=== PATIENT | male | born 1975 | race Caucasian/White ===

== ENCOUNTER 2017-05-02 17:36 | Emergency (ER) | payer OTHER ==
[~2017-05-02] VITALS: Ht 200.7 cm; Wt 115.9 kg
[~2017-05-02 17:36] MED LIST: ADV250INH IH; ALBU8.5H2 IH; AMLO10TA3 PO; ATOR20TA65 PO; BUPR150T12 PO; CLON0.1T PO; HYDR25TA4 PO; LEVO25TA5 PO; PANT40TA3 PO; TIOT18CA3 IH; [UNRECOGNIZED DRUG - CODE] IV
[2017-05-02 17:38] VITALS: BP 162/82; PULSE 108; RESP 17; O2SAT 98
--- NOTE | 2017-05-02 17:38 | ED.REPORT ---
HPI-General Illness Date of Service May 02, 2017 ED Provider: Justin Stanford DO A 41 year old male with a history of COPD, alcohol abuse and hemophilia B presents to the ED due to bleeding. The pt has been experiencing a productive cough recently, and noticed an area of bruising on his left lower abdomen yesterday. He also noticed a mass under this area, which he has not experienced before. The pt states that the affected area feels like it is continuing to enlarge. He called his supervisor grips at today, who referred him to the ED to get a factor IX treatment. The pt admits to headache and weakness, but denies nausea. He has experienced similar symptoms before. The pt takes six ibuprofen per day and quit smoking two weeks ago. Nursing Notes Stated Complaint: FACTOR 9/BLEEDING Nursing Notes Reviewed: Yes Allergies: Coded Allergies: No Known Allergies (Unverified , 05/03/17) Scheduled Amlodipine (Amlodipine) 10 Mg Tablet 10 MG PO DAILY Atorvastatin Calcium (Atorvastatin Calcium) 20 Mg Tablet 20 MG PO DAILY Azithromycin (Zithromax) 250 Mg Tablet 250 MG PO DAILY Bupropion ER (Bupropion ER) 150 Mg Tablet.er 150 MG PO BID Fluticasone/Salmeterol (Advair 250-50 Diskus) 60 Puff/Inh Disk 1 PUFF IH BID Hydrochlorothiazide (Hydrochlorothiazide) 25 Mg Tablet 25 MG PO DAILY Levothyroxine (Levothyroxine) 25 Mcg Tablet 25 MCG PO DAILY Pantoprazole DR (Pantoprazole DR) 40 Mg Tablet.dr 40 MG PO DAILY Prednisone (PredniSONE) 20 Mg Tablet 40 MG PO DAILY Tiotropium [place] (Spiriva) 18 Mcg Cap.w.dev 18 MCG IH DAILY Scheduled PRN ([vicodan]) unknown PO q4 to 6hrs PRN PRN For Pain Albuterol HFA (Proair HFA) 8.5 Gm Hfa.aer.ad 2 PUFFS IH Q4 PRN PRN For Shortness of Breath General Time Seen by MD: 17:37 Chief Complaint Other (Bleeding) Hx Obtained From: Patient Arrived By: Walk-in Sudden in Onset?: No Onset Occurred: 1 day ago Symptom Duration: Since onset Recent Healthcare: No recent hospitalization, Recent doctor visit Similar Sx Previous: Yes Past Medical History Past Medical History Hemophilia B Ruptured abd muscle COPD frequent ibuprofen use Past Surgical History Ankle surgery Reports: Knee replacement Smoking History Former Smoker (quit 04/2017) Social History Alcohol Use: 3-5 per day Drug Use: THC Ambulatory Status Independent Review of Systems mass in abdomen Full Review of Systems Constitutional: Reports: Weakness - generalized Cardiovascular: Denies: Chest pain GI: Reports: Nausea, Denies: Abdominal pain, Vomiting Musculoskeletal: Denies: Back pain, Neck pain Skin: Reports Bruising Neurologic: Reports: Headache Complete sys rev & neg: except as marked. Physical Exam Vital Signs Vital Signs Date Time Temp Pulse Resp B/P Pulse Ox O2 Delivery O2 Flow Rate FiO2 05/02/17 20:51 102 11 142/87 97 Room Air 05/02/17 17:38 36.6 108 17 162/82 98 Room Air Initial VS: Reviewed General/Constitutional: Awake, Alert Head / Eyes: Atraumatic, Normocephalic, PERRL, EOMI ENT: Atraumatic, Airway patent, Mucous membranes moist Neck: Atraumatic, Supple, Full range of motion Respiratory / Chest: Atraumatic, Breath sounds = bilat, No respiratory distress scattered expiratory wheezing Cardiovascular: Heart rate NL, Regular rhythm, Heart sounds NL Abdomen: Soft, Non-tender 12 cm mass in the LLQ with overlying hematoma, tender to palpation Back: Atraumatic, Full range of motion Upper Extremities Upper Extremity / MS: Atraumatic, Full range of motion Lower Extremity / Pelvis / MS: Atraumatic, Full range of motion Skin: Warm, Dry Neurologic: Oriented X3, Speech NL, No motor deficits, No sensory deficits Psychiatric: Affect NL, Mood NL Interpretation & Diagnostics Lab Results Interpretation Result Diagram: 05/02/17 1750 05/02/17 1750 Test 05/02/17 17:50 05/02/17 18:24 White Blood Count 10.3th/mm3 (3.8-10.1) Red Blood Count 4.45mil/mm3 (4.40-5.80) Hemoglobin 14.9g/dL (13.8-17.2) Hematocrit 40.4% (41.0-50.0) Mean Corpuscular Volume 90.8fL (81-100) Mean Corpuscular Hemoglobin 33.5pg (27.0-35.0) Mean Corpuscular Hemoglobin Concent 36.9% (32.0-37.0) Red Cell Distribution Width 12.4% (12.3-15.4) Platelet Count 246bil/L (150-400) Neutrophils (%) (Auto) 76.5% (40-74) Lymphocytes (%) (Auto) 14.3% (14-46) Monocytes (%) (Auto) 7.9% (4-12) Eosinophils (%) (Auto) 0.7% (0-5) Basophils (%) (Auto) 0.2% (0-3) Prothrombin Time 10.0sec (8.1-12.5) Prothromb Time International Ratio 0.94ratio Sodium Level 140mEq/L (134-144) Potassium Level 3.0mEq/L (3.5-5.2) Chloride Level 100mEq/L (97-108) Carbon Dioxide Level 21mmol/L (18-29) Blood Urea Nitrogen 10mg/dL (6-24) Creatinine 0.84mg/dL (0.76-1.27) Estimat Glomerular Filtration Rate 107mL/min (>59) Glucose Level 108mg/dL (60-99) Calcium Level 8.2mg/dL (8.5-10.1) Magnesium Level 0.8mg/dL (1.6-2.6) Total Bilirubin 0.9mg/dL (0.0-1.2) Aspartate Amino Transf (AST/SGOT) 16U/L (0-50) Alanine Aminotransferase (ALT/SGPT) 13U/L (0-44) Alkaline Phosphatase 99U/L (25-150) Total Protein 7.2g/dL (6.4-8.4) Albumin 4.3g/dL (3.4-5.0) Lipase 17U/L (13-60) Hold Feliz Top Tube Received (Received) X-Ray Chest Interpretation Chest Xray Interpretation: IMPRESSION: No acute disease Dictated by: Keyon Strong M.D. on 05/02/2017 at 18:38 Approved by: Keyon Strong M.D. on 05/02/2017 at 18:39 Interpretation / Wet Read by: Interpret - Radiologist CT Abd / Pelvis Interpretation IMPRESSION: Large left rectus abdominis intramuscular hematoma. Recommend clinical correlation and followup to document resolution and exclude underlying soft tissue mass. Dictated by: Keyon Strong M.D. on 05/02/2017 at 19:20 Approved by: Keyon Strong M.D. on 05/02/2017 at 19:27 Interpretation / Wet Read by: Interpret - Radiologist Re-Eval/Medical Decision Med Decision/Clinical Course Pt treated with factor IX sent from hematology for rectus sheath hematoma as recommended by his supervisor grips. He will return tomorrow for additional dose which was also sent as he routinely does. I am electing to treat him for COPD exacerbation given his h/o of this, his SOB/wheezing, and his increase sputum production/color change, in order to reduce his coughing and prevent a recurrence of his condition. Pt agreeable with this plan Source of Hx: Old records Time of Eval: 20:21 Patient Status: Condition improved Re-Evaluation/Progress Note: Pt rechecked, who is resting comfortably. The diagnosis and plan for discharge are discussed. The pt understands and agrees with the plan. All questions are addressed at this time. 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 Return tomorrow for your second dose of factor IX. Call your supervisor grips and primary care physician to arrange a follow up appointment for further evaluation. Take hydrocodone as needed for pain. Take prednisone and azithromycin as directed for your COPD. This should help your cough that led to a hematoma. Return to the emergency department if you develop any new or worsening symptoms including worsening bleeding, abdominal pain, nausea, vomiting or fever. Referrals: Lance Sr DO (PCP) Scribe Attestation Portions of this note were transcribed by Elmira Felipe. I, Dr. Stanford personally performed the history, physical exam and medical decision-making; I reviewed and confirmed the accuracy of the information in the transcribed note. copies to: Lance Sr Gary R DO May 02, 2017 17:38 ELMIRA FELIPE May 02, 2017 17:48
[2017-05-02] MEDS ORDERED: predniSONE 20 mg Tablet PO ONE (17:50)
[2017-05-02] MEDS ORDERED: HYDROmorphone 0.5 mg/0.5 mL iSecure Syringe IVPUSH PRN (17:50)
[2017-05-02] MEDS ORDERED: Ondansetron 2 mg/mL 2 mL Inj IVPUSH PRN (17:50)
[2017-05-02 18:13] LABS: BASOPHILS % (AUTO) 0.2 % (0-3); EOSINOPHILS % (AUTO) 0.7 % (0-5); MONOCYTES % (AUTO) 7.9 % (4-12); Mean Corpuscular Hemoglobin 33.5 pg (27.0-35.0); Mean Corpuscular Volume 90.8 fL (81-100); NEUTROPHILS % (AUTO) 76.5 % (40-74); Platelet Count 246 bil/L (150-400)
[2017-05-02 18:23] LABS: INR 0.94 ratio
[2017-05-02] MEDS ORDERED: [UNRECOGNIZED DRUG - MIXTURE] IV ONE (18:30)
--- NOTE | 2017-05-02 18:40 | DRSVH ---
PROCEDURE: X-RAY CHEST, TWO VIEWS ([id number]) INDICATIONS: cough TECHNIQUE: 2 views of the chest were acquired. COMPARISON: None. FINDINGS: Surgical changes and devices: None. Lungs and pleura: No pleural effusions or pneumothorax. Lungs are clear. Mediastinum: Mediastinal contours are normal. Heart size is normal. Bones and chest wall: No suspicious bony abnormalities. Soft tissues appear unremarkable. IMPRESSION: No acute disease Dictated by: Keyon Strong M.D. on 05/02/2017 at 18:38 Approved by: Keyon Strong M.D. on 05/02/2017 at 18:39
[2017-05-02 18:48] LABS: Magnesium 0.8 mg/dL (1.6-2.6)
[2017-05-02] MEDS ORDERED: Magnesium Sulf 2 Gm/50mL Water 2 GM in IV Premix 1 EACH IV ONE (18:50)
--- NOTE | 2017-05-02 19:29 | DRSVH ---
PROCEDURE: CT ABDOMEN AND PELVIS WITH CONTRAST ([id number]) INDICATIONS: LLQ abdom mass, h/o hemophelia TECHNIQUE: After the administration of intravenous contrast, 5 mm thick sections acquired from the diaphragm to the symphysis. 5 mm coronal and sagittal reformats were acquired. For radiation dose reduction, the following was used: automated exposure control, adjustment of mA and/or kV according to patient nalini garcia COMPARISON: [facility], CT, CT ABD PELVIS W CON, 09/30/2016, 19:01. FINDINGS: Image quality: Excellent. ABDOMEN: Lung bases: No acute consolidation. There is a 3 mm nodule seen in the right lung base on image 18 se arnav 4 which is unchanged since 09/30/16. There is mild bronchiectasis and scarring in the medial gissel g bases. There is aortic thickening. Solid organs: Liver and spleen are normal in size and enhancement. Gallbladder negative. Biliary s ystem is non dilated. Pancreas enhances normally. No adrenal nodules. Kidneys demonstrate normal s ize without hydronephrosis. There is probable minimal contrast material within the renal collecting s ystems (rather than nephrolithiasis) Peritoneum and bowel: Bowel loops demonstrate normal wall thickness and caliber. No free fluid or a ir. Normal appendix. The rectum is decompressed and unremarkable. Nodes and vessels: No retroperitoneal or mesenteric adenopathy by size criteria. Aorta and inferior vena cava are normal in size. Miscellaneous: There is marked enlargement of the left abdominis rectus muscle with overlying subcuta neous stranding. There is increased attenuation and findings likely represent intramuscular hematoma which measures approximately 5.1 x 9.9 cm in cross-sectional dimensions PELVIS: Genitourinary: Bladder wall thickness is normal. Miscellaneous: No inguinal hernias or adenopathy. Bones: No suspicious bony lesions. No vertebral body compression fractures. IMPRESSION: Large left rectus abdominis intramuscular hematoma. Recommend clinical correlation and followup to do cument resolution and exclude underlying soft tissue mass. Dictated by: Keyon Strong M.D. on 05/02/2017 at 19:20 Approved by: Keyon Strong M.D. on 05/02/2017 at 19:27
[2017-05-02] MEDS ORDERED: Potassium Chloride 20 mEq SR Tablet PO ONE (19:45)
[2017-05-02] MEDS ORDERED: ZIT250 PO (20:39)
[2017-05-02] MEDS ORDERED: PRE20 PO (20:39)
[2017-05-02] MEDS ORDERED: _HYDROcodone/APAP 5-325 mg Tablet PO PRN (20:40)
[2017-05-02 20:51] VITALS: BP 142/87; PULSE 102; RESP 11; O2SAT 97
[2017-05-03] MEDS ORDERED: VICODAN PO (21:13)
[2017-05-06] MEDS ORDERED: VARE1TAB22 PO (09:17)
== END 2017-05-02 20:56 | disposition home or self-care (01) ==
LOC: SED 17:36
DX: S30.1XXA Contusion of abdominal wall, initial encounter (principal); X58.XXXA Exposure to other specified factors, initial encounter; Y93.89 Activity, other specified; Y92.89 Other specified places as the place of occurrence of the external cause; Y99.8 Other external cause status; J44.1 Chronic obstructive pulmonary disease with (acute) exacerbation; D67 Hereditary factor IX deficiency; E83.42 Hypomagnesemia; E87.6 Hypokalemia; R53.1 Weakness; R51 Headache; Z98.890 Other specified postprocedural states; Z96.659 Presence of unspecified artificial knee joint; Z87.891 Personal history of nicotine dependence
CPT/HCPCS: 36415; 71020; 74177; 80053; 83690; 83735; 85025; 85610; 96374; 96375; 99285; J7194; Q9967

== ENCOUNTER 2017-05-03 17:16 | Inpatient (IN) | payer OTHER ==
[~2017-05-03] VITALS: Ht 200.7 cm; Wt 118.3 kg
[~2017-05-03 17:16] MED LIST changes: +PRE20 PO; +ZIT250 PO
[2017-05-03 17:26] VITALS: BP 149/85; PULSE 112; RESP 16; O2SAT 96
--- NOTE | 2017-05-03 17:43 | ED.REPORT ---
HPI-General Illness Date of Service May 03, 2017 ED Provider: Dr. Aguilar Pt is a 41 y/o male w/ a hx of hemophilia B, COPD, presenting to the ED c/o abdominal bruising and swelling onset 2 days ago. The patient states this is a rectus sheath hematoma and he experiences this about every 6 months in the same location. It occurred this time because he coughed. He was seen in the ED yesterday and diagnosed with rectus sheath hematoma after an abd/pelvis CT was performed. He was told to return today for his second round of factor IX. The patient's CLINICAL DOCUMENTATION SPEC groundman/lineman called prior to arrival today and recommended he be admitted for 2 days and given factor IX. He denies nausea, vomiting, fever, chills, lightheadedness, weakness, fatigue, SOB. Nursing Notes Stated Complaint: BLEEDING Chief Complaint: General Complaint Nursing Notes Reviewed: Yes Allergies: Coded Allergies: No Known Allergies (Unverified , 05/03/17) Scheduled Amlodipine (Amlodipine) 10 Mg Tablet 10 MG PO DAILY Atorvastatin Calcium (Atorvastatin Calcium) 20 Mg Tablet 20 MG PO DAILY Azithromycin (Zithromax) 250 Mg Tablet 250 MG PO DAILY Bupropion ER (Bupropion ER) 150 Mg Tablet.er 150 MG PO BID Fluticasone/Salmeterol (Advair 250-50 Diskus) 60 Puff/Inh Disk 1 PUFF IH BID Hydrochlorothiazide (Hydrochlorothiazide) 25 Mg Tablet 25 MG PO DAILY Levothyroxine (Levothyroxine) 25 Mcg Tablet 25 MCG PO DAILY Pantoprazole DR (Pantoprazole DR) 40 Mg Tablet.dr 40 MG PO DAILY Prednisone (PredniSONE) 20 Mg Tablet 40 MG PO DAILY Tiotropium [place] (Spiriva) 18 Mcg Cap.w.dev 18 MCG IH DAILY Scheduled PRN ([vicodan]) unknown PO q4 to 6hrs PRN PRN For Pain Albuterol HFA (Proair HFA) 8.5 Gm Hfa.aer.ad 2 PUFFS IH Q4 PRN PRN For Shortness of Breath General Time Seen by MD: 17:43 Chief Complaint Other (abd hematoma) Hx Obtained From: Patient Arrived By: Walk-in Sudden in Onset?: Yes Onset Occurred: 2 days ago Symptom Duration: Since onset Severity: Current: No pain currently Severity: Maximum: No pain Recent Healthcare: Recent doctor visit, Recent testing, Previous diagnosis, Prior workup Similar Sx Previous: Yes Past Medical History Past Medical History Hemophilia B diagnosed at age 17 Recurrent rectus sheath hematoma Ruptured abd muscle COPD frequent ibuprofen use H/o hyperlipidemia Hx pneumonia Anxiety Past Surgical History Ankle surgery Reports: Knee replacement Family History Hemophilia B Smoking History Former Smoker Social History Alcohol Use: 3-5 per day Drug Use: THC Ambulatory Status Independent Review of Systems Full Review of Systems Constitutional: Denies: Chills, Fatigue, Fever Respiratory: Reports: Non-productive cough, Denies: Shortness of breath Cardiovascular: Denies: Chest pain GI: Denies: Nausea, Vomiting Hematologic: Reports Bruising Neurologic: Denies: Dizziness, Lightheaded Complete sys rev & neg: except as marked. Physical Exam Vital Signs Vital Signs Date Time Temp Pulse Resp B/P Pulse Ox O2 Delivery O2 Flow Rate FiO2 05/03/17 17:26 36.9 112 16 149/85 96 Room Air Initial VS: Reviewed, Vital signs abnormal Head / Eyes: Atraumatic, Normocephalic, PERRL ENT: Mucous membranes moist, Conjunctiva normal, No scleral icterus Neck: Supple, Full range of motion Respiratory: Breath sounds normal, Clear to auscultation, No respiratory distress Cardiovascular: Regular rate & rhythm, Heart sounds normal, Intact distal pulses Extremities: Vascular intact, Neuro intact, No swelling Skin: Warm, Dry, No cyanosis Neurologic: Alert, Oriented, Nonfocal Psychiatric: Mood/affect normal, Behavior normal, Normal thought content General/Constitutional: Awake, Alert, No acute distress, Well appearing, Cooperative, Not toxic appearing Abdomen: Soft, Non-tender, No guarding, No rebound 10x12 cm hematoma over LLQ with some overlying contusion Interpretation & Diagnostics Lab Results Interpretation Result Diagram: 05/03/17 1840 05/03/17 184 Test 05/03/17 18:40 White Blood Count 10.1th/mm3 (3.8-10.1) Red Blood Count 4.19mil/mm3 (4.40-5.80) Hemoglobin 14.0g/dL (13.8-17.2) Hematocrit 38.6% (41.0-50.0) Mean Corpuscular Volume 92.1fL (81-100) Mean Corpuscular Hemoglobin 33.4pg (27.0-35.0) Mean Corpuscular Hemoglobin Concent 36.3% (32.0-37.0) Red Cell Distribution Width 12.5% (12.3-15.4) Platelet Count 258bil/L (150-400) Neutrophils (%) (Auto) 75.0% (40-74) Lymphocytes (%) (Auto) 15.8% (14-46) Monocytes (%) (Auto) 7.5% (4-12) Eosinophils (%) (Auto) 0.7% (0-5) Basophils (%) (Auto) 0.2% (0-3) Prothrombin Time 9.9sec (8.1-12.5) Prothromb Time International Ratio 0.93ratio Sodium Level 137mEq/L (134-144) Potassium Level 2.8mEq/L (3.5-5.2) Chloride Level 97mEq/L (97-108) Carbon Dioxide Level 22mmol/L (18-29) Blood Urea Nitrogen 12mg/dL (6-24) Creatinine 0.87mg/dL (0.76-1.27) Estimat Glomerular Filtration Rate 103mL/min (>59) Glucose Level 105mg/dL (60-99) Calcium Level 8.6mg/dL (8.5-10.1) Total Bilirubin 0.7mg/dL (0.0-1.2) Aspartate Amino Transf (AST/SGOT) 12U/L (0-50) Alanine Aminotransferase (ALT/SGPT) 11U/L (0-44) Alkaline Phosphatase 89U/L (25-150) Total Protein 7.7g/dL (6.4-8.4) Albumin 4.4g/dL (3.4-5.0) Thyroid Stimulating Hormone (TSH) 7.680uIU/mL (0.450-4.500) ECG Interpretation ECG Interpretation: Sinus tachycardia rate 102 Time: 19:42 Interpreted by: ED physician Normal ECG Interpretation: Normal sinus rhythm, No acute ischemic changes, Normal QRS, Normal axis, Normal intervals, Adequate tracing Re-Eval/Medical Decision Med Decision/Clinical Course 41-year-old male history of hemophilia B sent in by nurse practitioner at hemophilia clinic for rectus sheath hematoma for admission for factor IX. Patient was spontaneous rectus sheath hematoma 2 days ago. Seen yesterday at CT scan was performed which showed the rectus sheath hematoma. Patient was given factor IX yesterday. The day he called hemophilia clinic and noted worsening swelling was told to come in for factor IX and admission. I discussed at length with the nurse practitioner from the hemophilia clinic who recommended Factor IX bolus dose in ER followed by 5800 IUs Q12hrs to be initiated 12 hours after bolus dose. His hemoglobin is stable. His vital signs are stable. Admitted to the hospital. Time of Eval: 18:48 Re-Evaluation/Progress Note: Pt rechecked. Informed pt of need for admission. Pt understands and agrees with plan for admission. All questions addressed. Consultation #1: Referral / Consult Name: Mariusz Avendano MD Consulted With: Hospitalist Call Returned at: 19:28 Admissions Assistant: Will see patient, Agrees with eval, Agrees with plan, Accepts admit Consultation #2: Consulted With: Press Shop Supervisor Call Returned at: 17:30 Admissions Assistant: Agrees with eval, Agrees with plan Note: Case discussed w/ patient's CLINICAL DOCUMENTATION SPEC groundman/lineman. Counseled Regarding: Diagnosis, Lab results, Need for admission Discharge & Departure Primary Impression: Rectus sheath hematoma Encounter type: initial encounter Qualified Code: S30.1XXA - Contusion of abdominal wall, initial encounter Additional Impressions: Hemophilia B Factor IX deficiency Hypokalemia Disposition: ADMITTED TO HOSPITAL Discharge Condition All VS Reviewed: Yes Condition: Stable Referrals: Lance Sr DO (PCP) Scribe Attestation Portions of this note were transcribed by Ferny Pineda. I, Dr. Aguilar personally performed the history, physical exam and medical decision-making; I reviewed and confirmed the accuracy of the information in the transcribed note. copies to: Lance Sr Ben M MD May 03, 2017 17:43 FERNY PINEDA May 03, 2017 18:46
[2017-05-03] MEDS ORDERED: [UNRECOGNIZED DRUG - MIXTURE] IV ONE (18:00)
[2017-05-03 18:47] LABS: BASOPHILS % (AUTO) 0.2 % (0-3); EOSINOPHILS % (AUTO) 0.7 % (0-5); MONOCYTES % (AUTO) 7.5 % (4-12); Mean Corpuscular Hemoglobin 33.4 pg (27.0-35.0); Mean Corpuscular Volume 92.1 fL (81-100); Platelet Count 258 bil/L (150-400)
[2017-05-03 19:04] LABS: INR 0.93 ratio
[2017-05-03] MEDS ORDERED: KCl 40 mEq/D5W 500 mL 40 MEQ in IV Premix 1 EACH IV ONE (19:25)
[2017-05-03] MEDS ORDERED: Alum-Mag Hydrox-Simeth 30 mL Suspension PO PRN ×2 (19:35→20:15)
[2017-05-03] MEDS ORDERED: Ondansetron 2 mg/mL 2 mL Inj IVPUSH PRN ×2 (19:35→20:15)
--- NOTE | 2017-05-03 19:47 | PCM.HPMED ---
Subjective Date of Service May 03, 2017 Primary Provider: Admitting Physician: Primary Care Physician: Lance Sr DO Attending Physician: Chief Complaint: Abdominal bruising History of Present Illness: 41-year-old male with a history of hemophilia, COPD and recurrent rectal sheath hematomas presents to emergency department due to new onset abdominal bruising and swelling that started 2 days ago. The patient presented yesterday to the ED and was found to be in stable condition and scheduled to return today for factor IX replacement. Patient states that his bruising continued to increase and he presented again to see department. He states that this occurs every 6 months around the same location in the lower abdomen. He believes it started this time due to coughing fit which he had. He contact his mounted police in [place] (whose name he does not know) and the nurse practitioner told him that he should come to the hospital and be admitted for 2 days for replacement of factor IX. He denies any associated symptoms of blood loss including dizziness , lightheadedness, chest pain, shortness of breath, weakness, or fatigue. Emergency department the patient has received 11,000 international units of factor IX. Yesterday he had a CT abdomen which showed a hematoma, and the study was not repeated today. Review of Systems: Complete review of systems performed; pertinent positives and negatives per history of present illness, all other systems reviewed and are negative Allergies Coded Allergies: No Known Allergies (Unverified , 05/03/17) Home Medications Amlodipine (Amlodipine) 10 Mg Tablet 10 MG PO DAILY Atorvastatin Calcium (Atorvastatin Calcium) 20 Mg Tablet 20 MG PO DAILY Azithromycin (Zithromax) 250 Mg Tablet 250 MG PO DAILY Bupropion ER (Bupropion ER) 150 Mg Tablet.er 150 MG PO BID Factor IX Human Recombinant (Benefix) 3,000 Unit Kit 5,750 UNITS IV DAILY Fluticasone/Salmeterol (Advair 250-50 Diskus) 60 Puff/Inh Disk 1 PUFF IH BID Hydrochlorothiazide (Hydrochlorothiazide) 25 Mg Tablet 25 MG PO DAILY Levothyroxine (Levothyroxine) 25 Mcg Tablet 25 MCG PO DAILY Pantoprazole (Pantoprazole DR) 40 Mg Tablet.dr 40 MG PO DAILY Prednisone (PredniSONE) 20 Mg Tablet 40 MG PO DAILY Tiotropium [place] (Spiriva) 18 Mcg Cap.w.dev 18 MCG IH DAILY Albuterol HFA (Proair HFA) 8.5 Gm Hfa.aer.ad 2 PUFFS IH Q4 PRN PRN For Shortness of Breath Clonidine (Clonidine) 0.1 Mg Tablet 0.1 MG PO BID PRN PRN "SWEATING" PMH Hemophilia B diagnosed at age 17 Recurrent rectus sheath hematoma Ruptured abd muscle COPD frequent ibuprofen use H/o hyperlipidemia Hx pneumonia Anxiety Surgical History Ankle surgery Reports: Knee replacement Family History Hemophilia B Social History Hx Alcohol Use: Yes (DAILY ETOH A PINT A DAY) Hx Substance Use: Yes (marijuana) Hx Tobacco Use: Yes Smoking Status: Former Smoker Living Arrangement: with Family Additional Information Schoolteacher Exam Vital Signs Vital Sign - Last Date Time Temp Pulse Resp B/P Pulse Ox O2 Delivery O2 Flow Rate FiO2 05/03/17 17:26 36.9 112 16 149/85 96 Room Air Exam General: Pleasant age-appropriate male in no acute distress HEENT: PERRLA, EOMI, nonicteric, membranes moist; no conjunctival pallor Lymph: No lymphadenopathy Cardio: Regular rate and rhythm no murmurs rubs or gallops Respiratory: CTA bilaterally with wheezing, decreased and coarse breath sounds Abdomen: Soft, positive bowel sounds, mildly tender in the central pannus, nondistended, noticeable bruising the lower abdomen Extremities: No edema, 5/5 strength, sensation intact Psych: Appropriate mood and affect Neuro: CN II through XII grossly intact, sensation intact throughout Skin: No rash Lab and Diagnostics Result Diagram: 05/03/17 1840 05/03/17 1840 X-Rays, CTs and MRIs CT abdomen 05/02/17 Large left rectus abdominis intramuscular hematoma. Recommend clinical correlation and followup to document resolution and exclude underlying soft tissue mass Dictated by: Keyon Strong M.D. on 05/02/2017 at 19:20 Assessment & Plan Acute and recurrent rectus sheath hematoma in hemophilia B; present on admission ; ongoing -Presents with ongoing abdominal bruising that has since stabilized -Replace Factor IX: 5800 iu Q12 -Pharmacy will order more as we only have enough for two runs -CBC @ 0000 tonight and in AM to assess bleeding (Q6) -CBC tomorrow morning -A bruising increases or hemoglobin drops may consider additional CT abdomen Acute Hypokalemia; present on admission; ongoing -Replaced in ED -BMP tomorrow -Will try additional PO KCl and will monitor HTN; present on admission; ongoing -Blood pressure elevated to the 160s likely due to pain with this hematoma -continue amlodipine and HCTZ -Labetalol IV for SBP greater than 180 Hyperlipidemia-continue atorvastatin COPD-continue Advair and Spiriva; azithromycin Anxiety-continue buprprion Hypothyroid-continue home levothyroxine; check TSH Disposition: Patient is being admitted to inpatient status with expected length of stay greater than two midnights due to to severity of presentation, duration of treatment, and risks of adverse events disposition Full code Pain Evaluation: Adequate Pain Control VTE Prophylaxis Indicated: Contraindicated Resuscitation Status: CPR: Attempt Resuscitation Attending Statement The patient was seen and examined together with Dr. Echeverria on 05/03 and I agree with the history, exam and plan as outlined in the note above. Rustam Echeverria DO May 03, 2017 19:47 Mariusz Avendano MD May 03, 2017 23:16
[2017-05-03] MEDS ORDERED: Polyethylene Glycol (PEG) 17 Gm Powder PO PRN (20:15)
[2017-05-03 20:26] VITALS: BP 143/81; PULSE 97; RESP 16; O2SAT 97
[2017-05-03 20:43] VITALS: BP 160/86; PULSE 104; RESP 19; O2SAT 97
[2017-05-03] MEDS ORDERED: VICODAN PO (21:13)
[2017-05-03] MEDS ORDERED: Labetalol 5 mg/mL 4 mL Inj IVPUSH ONE (21:15)
[2017-05-03] MEDS: 0.9% Sodium Chloride 1,000 ML IV SCH (21:38)
[2017-05-03] MEDS ORDERED: Albuterol 2.5 mg/3 mL Inhalation Solution NEB PRN (21:44)
[2017-05-03] MEDS: predniSONE 20 mg Tablet PO SCH (22:59)
--- NOTE | 2017-05-03 23:18 | NUR ---
ADMIT; 41 yr old male to room 1025 via [facility] @ approx. 2030 with c/o abd pain, large hematoma on abd past couple of days. States this happens about every 6 months. Specific on what meds he needs to take tonight. Dr. Echeverria and Dr. Garduno notified and orders noted. At approx 10pm pt found outside trying to have a cigarette stating he has been waiting "since 4'oclock" for his zithromycin for his chronic cough. Reminded pt regarding no smoking policy (that he was informed about upon admission to his room). Zithromycin and prednisone given. Pt calmed down. Pt appears to be asleep at this time.
[2017-05-04 00:14] LABS: BASOPHILS % (AUTO) 0.2 % (0-3); EOSINOPHILS % (AUTO) 0.8 % (0-5); MONOCYTES % (AUTO) 7.5 % (4-12); Mean Corpuscular Hemoglobin 33.5 pg (27.0-35.0); Mean Corpuscular Volume 92.6 fL (81-100); NEUTROPHILS % (AUTO) 75.6 % (40-74); Platelet Count 213 bil/L (150-400)
[2017-05-04] MEDS: 0.9% Sodium Chloride 1,000 ML IV SCH (00:57)
[2017-05-04] MEDS: HYDROcodone-APAP 5-325 mg Tablet PO PRN ×4 (03:57→18:13)
[2017-05-04 04:15] VITALS: BP 137/89; PULSE 101; RESP 22; O2SAT 97
--- NOTE | 2017-05-04 04:30 | NUR ---
PAIN; vicodan one tab given per request for abd soreness. Bruising does not appear to be increasing.
[2017-05-04] MEDS: [UNRECOGNIZED DRUG - MIXTURE] IV SCH ×2 (06:14→18:11)
--- NOTE | 2017-05-04 06:31 | NUR ---
BENEFIX; given-tolerated well.
[2017-05-04 06:35] LABS: BASOPHILS % (AUTO) 0.1 % (0-3); EOSINOPHILS % (AUTO) 0.1 % (0-5); MONOCYTES % (AUTO) 5.1 % (4-12); Mean Corpuscular Hemoglobin 33.3 pg (27.0-35.0); Mean Corpuscular Volume 93.8 fL (81-100); NEUTROPHILS % (AUTO) 89.1 % (40-74); Platelet Count 236 bil/L (150-400)
[2017-05-04 07:30] VITALS: PULSE 102; RESP 20; O2SAT 96
[2017-05-04] MEDS: buPROPion SR 150 mg ER12 Tablet PO SCH ×2 (08:24→20:02)
[2017-05-04] MEDS: Pantoprazole 40 mg ER24 Tablet PO SCH (08:24)
[2017-05-04] MEDS: predniSONE 20 mg Tablet PO SCH (08:24)
[2017-05-04] MEDS: Tiotropium 18mcg/Cap 5 Capsule Inhaler Kit INHALATION SCH (08:25)
[2017-05-04] MEDS: Fluticasone-Salmererol 250-50 Inhaler INHALATION SCH ×2 (08:25→20:03)
[2017-05-04 12:46] VITALS: BP 162/99; PULSE 54; RESP 20; O2SAT 97
--- NOTE | 2017-05-04 17:12 | PCM.PNMED ---
Subjective Date of Service May 04, 2017 Subjective Denies any new issues/complaints Exam Vital Signs Vital Sign - Last Date Time Temp Pulse Resp B/P Pulse Ox O2 Delivery O2 Flow Rate FiO2 05/04/17 12:46 36.6 54 20 162/99 97 Room Air Intake and Output 05/03/17 05/03/17 05/04/17 Cumulative From/Thru 15:00 23:00 07:00 05/03/17 17:26 - 05/04/17 06:39 Intake Total 1340 ml 1340 ml Balance 1340 ml 1340 ml Intake Oral 800 ml 800 ml IV Total 540 ml 540 ml # Voids 2 2 General: Alert, Cooperative, No Acute Distress Head: Normal Eyes: Scleral Anicteric Nose: Mucous Membr Moist/River Bottom Mouth: Mucous Membr Moist/River Bottom Neck: Supple Chest & Lungs: Chest Wall Normal, Clear to auscultation & percussion Cardiovascular: Regular Rate/Rhythm Abdomen: Tender, Non-distended, Normoactive bowel tones, Soft, Other ( noticeable bruising the lower abdomen) Extremities: No cyanosis/clubbing/edma bilat Neurological: Grossly Neurologically Intact, Normal Speech Additional Information: Psych: Calm, appropriate IVs and Medications Medications Reviewed: Medications were reviewed in detail Lab and Diagnostics Result Diagram: 05/04/1752405/04/17524 X-Rays, CTs and MRIs CT abdomen 05/02/17 Large left rectus abdominis intramuscular hematoma. Recommend clinical correlation and followup to document resolution and exclude underlying soft tissue mass Dictated by: Keyon Strong M.D. on 05/02/2017 at 19:20 Assessment & Plan 41-year-old male with a history of hemophilia B, COPD and recurrent rectal sheath hematomas presents to emergency department due to new onset abdominal bruising and swelling that started 2 days prior to admission. The patient presented to the ED a day earlier and was found to be in stable condition and scheduled to return for factor IX replacement. He contact his bottling machine operator in [place] (whose name he does not know) and the nurse practitioner told him that he should come to the hospital and be admitted for 2 days for replacement of factor IX. # Acute and recurrent rectus sheath hematoma in hemophilia B; present on admission; ongoing -Presents with ongoing abdominal bruising -Replace Factor IX: 5800 iu Q12 -Pharmacy will order more -Hematology consulted today (05/04/17). Will followup with further recs -Consider repeat abdominal CT in next day or so # Acute Hypokalemia; present on admission -Replaced in ED and resolved -Followup # HTN; present on admission; ongoing -Blood pressure elevated to the 160s likely due to pain with this hematoma -Continue amlodipine and HCTZ -Labetalol IV for SBP greater than 180 # Hyperlipidemia -Continue atorvastatin # COPD. Stable. -Continue Advair and Spiriva; azithromycin # Anxiety. Stable. -Continue Bupropion # Hypothyroid -Continue home levothyroxine -Elevated TSH. ? if acute reaction vs undertreated with current meds -Consider repeating labs after acute stress resolved. Dispo: 1-2 days pending above Resuscitation Status: CPR: Attempt Resuscitation Iam Mcnamara May 04, 2017 17:12
--- NOTE | 2017-05-04 17:30 | NUR ---
Social Work: Initial Assessment/Multi-Disciplinary Rounds D: EMR reviewed. Please see Initial Assessment linked to this note for more information. Pt is a 41 y/o male admitted for abdominal hematoma, hemophiliac per H&P. Pt has a readmit risk score of 2. Pt screened in for initial assessment due to multiple providers and oncologist in [place]. SW met with pt at bedside to conduct initial assessment. Pt was alert and oriented x3. SW explained role and wrote phone number on white board. SW provided "Your Discharge Planning Checklist" and encouraged pt to contact SW for any discharge planning questions. Pt's insurance is [employer]. PCP is Lance Sr MD. Pt has an Oncologist in [place] but pt can't recall name of provider at this time. Pt gave verbal consent to contact spouse Susan Hernandez [phone] for discharge planning. DPOA/advanced directive ppw discussed - pt stated he completed ppw and provided a copy to the hospital. Pt owns a walker but does not use it for ambulation. Pt is independent with all ADLs. Pt has no hx of a SNF or HH. Pt discussed in multidisciplinary rounds. Per multidisciplinary rounds, pt is not medically stable for discharge, anticipate 2-3 more days pending Oncology. No SW needs identified, no MD orders received. A: SW assessed pt's capacity for self-care. SW does not have any concerns for pt's capacity for self-care. Pt is independent with ADLs at baseline. Pt does not have any concerns regarding discharge at this time. Pt lives at home with his family in [facility]. P: Pt likely to discharge home with spouse to transport via POV. No SW needs identified. No MD orders received. SW will continue to follow for needs. PHILLY Velazquez Addendum: 05/04/17 at 1734 by MITESH VARGAS Amended: Links added.
--- NOTE | 2017-05-04 18:24 | NUR ---
Behavior Pt IV SL and pt stated that he was going to go on a walk. Pt aware that he is not to go off unit after last night's events. This RN noted pt in his street clothes and slowly made his way up by the front desk host/exit. To make sure pt walking on unit went to visualize pt make the corner. He had walked off the unit. Confronted, pt stating, 'that's fine. I'm just going outside real quick.' ... 'Im just going out to have my two smokes. I'm quitting. 'Pt made aware that he must stay on the unit to continue his care and made aware that if no compliance would be considered to leaving AMA. Pt walked back onto unit, willing to have his IV taken out. Asked pt if he wanted to start gathering his things to which he replied, 'I'll just get it (IV) popped back in, I'll be back.' Radiology Asst now involved. Call to Dr. Mcnamara re: this. Pt later stating willing to stay until tomorrow morning and has not made any attempts to leave unit. Has remained fairly pleasant and cooperative with care. Has demands/expectations re: discharge (for 0720AM) that will be long shot, but cook page to re: this sent. Pt receiving Factor IX - Care continues.
[2017-05-04 19:43] VITALS: BP 143/93; PULSE 69; RESP 19; O2SAT 97
[2017-05-04 19:51] VITALS: PULSE 98; RESP 16; O2SAT 97
[2017-05-05] MEDS: HYDROcodone-APAP 5-325 mg Tablet PO PRN (02:22)
--- NOTE | 2017-05-05 04:08 | NUR ---
Behavior Pt very pleasant and cooperative with care. Continues with expectations that he is leaving at 0620, not 0720. reminded Pt that he had requested a CT scan and it was scheduled for 0500. Advised Pt that MD would need to review in order to write D/C orders as well as prescription for narcotics that Pt is requesting. Reminded Pt he also has a factor IX scheduled for 0600, his reply to that is: it is supposed to be at 0500. Verified with Pt it is every 12hrs and he had last rec'd at 1800. He continues to believe he could have left yesterday- 05/04, but his glaciologist wanted the CT scan. Discussed Pt leaving AMA, he is aware of policy. He did not attempt to leave the unit this shift.
[2017-05-05 05:35] VITALS: BP 141/90; PULSE 82; RESP 18; O2SAT 98
[2017-05-05 06:13] LABS: BASOPHILS % (AUTO) 0.2 % (0-3); EOSINOPHILS % (AUTO) 0.3 % (0-5); MONOCYTES % (AUTO) 7.8 % (4-12); Mean Corpuscular Hemoglobin 32.8 pg (27.0-35.0); Mean Corpuscular Volume 92.9 fL (81-100); NEUTROPHILS % (AUTO) 74.7 % (40-74); Platelet Count 263 bil/L (150-400)
[2017-05-05 06:27] LABS: INR 0.9 ratio
[2017-05-05] MEDS: [UNRECOGNIZED DRUG - MIXTURE] IV SCH (07:14)
--- NOTE | 2017-05-05 07:59 | PROG NOTE ---
[address] [address] PROGRESS NOTE PATIENT: GEORGIE PHAM : 1975 MR#: [id number] ADMIT: 05/03/2017 JOB ID: [id number] DATE: 05/04/2017 SUBJECTIVE: The patient is a 41-year-old gentleman with a history of hemophilia B (factor IX) deficiency. He was diagnosed at age 17 when he underwent wisdom tooth extraction. He did well for many years, but over the past 3-4 years has had bleeding into the rectus abdominis sheath about once every six months. He has been followed at the [facility], and receives treatment with recombinant human factor IX (Benefix). He presented to the emergency department on May 03, 2017, with increased ecchymosis and swelling over the left lower abdomen. Imaging on May 02, 2017, showed a left rectus abdominis intramuscular hematoma with associated subcutaneous stranding. The hematoma measured approximately 5.1 x 9.9 cm in cross-sectional dimension. He has received recombinant factor IX (Benefix) 11,670 units x2, and 5800 units x1 during this hospitalization. He has no acute concerns at this time. He denied any precipitating trauma. He denies any other areas of bruising or bleeding. He denies any joint pain. OBJECTIVE: Vitals: T 36.6, P 54, R 20, BP 162/99, O2 saturation 97% on room air. HEENT: Conjunctivae pink. Mucous membranes moist. No oral lesions. Nodes: No adenopathy in the neck or axilla. Chest: Clear throughout. No wheezes or crackles. Cardiac exam: Regular rate and rhythm with normal S1, S2. Abdomen: Soft. He has a large ecchymosis in the left lower quadrant with underlying firm hematoma, which is nontender. No other palpable masses. Extremities: No edema. 2+ distal pulses. LABORATORIES: WBC 11.9, hemoglobin 13.5, hematocrit 38%, platelets 236,000. Sodium 141, potassium 3.9, BUN 10, creatinine 0.77, glucose 136. TSH 7.68. PT 9.9, INR 0.93. ASSESSMENT AND PLAN: Hemophilia B. (factor IX deficiency), with left rectus abdominis intramuscular hematoma: The patient has a known history of hemophilia B ([place] disease), monitored at the [facility]. He had initial bleeding complications following dental wisdom tooth extractions at age 17, and no subsequent bleeds into joints or muscle until about three years ago, since which time he has had intermittent bleeds about once every six months, requiring factor replacement. He is not on prophylactic factor. It is unclear if he has developed an antibody that has led to more frequent episodes, but we will obtain outside records from [facility]. It is unclear if he has stopped bleeding at this time. He has received appropriate treatment with recombinant factor IX, 11,670 units x2 and 5800 units earlier today. He is clinically stable. Repeat CT of the abdomen and pelvis tomorrow morning to determine if the hematoma in his left rectus abdominis hematoma is stable or growing. If stable, he could be discharged home to continue management as an outpatient. We would be happy to follow him at the [facility] locally should he desire, working in concert with [facility]. Please arrange followup with Dr. Riley in the Cancer Center in approximately one month. We will obtain the patient's extensive family history at that time, which includes numerous affected uncles. Thank you for allowing us to participate in your patient's care.
[2017-05-05] MEDS: Fluticasone-Salmererol 250-50 Inhaler INHALATION SCH (08:03)
[2017-05-05] MEDS: Tiotropium 18mcg/Cap 5 Capsule Inhaler Kit INHALATION SCH (08:03)
[2017-05-05] MEDS: Pantoprazole 40 mg ER24 Tablet PO SCH (08:10)
[2017-05-05] MEDS: predniSONE 20 mg Tablet PO SCH (08:10)
[2017-05-05] MEDS: buPROPion SR 150 mg ER12 Tablet PO SCH (08:10)
--- NOTE | 2017-05-05 08:33 | DRSVH ---
PROCEDURE: CT ABDOMEN AND PELVIS WITH CONTRAST ([id number]) INDICATIONS: Comparison from CT 05/02, history of hemophilia TECHNIQUE: After the administration of intravenous contrast, 5 mm thick sections acquired from the diaphragm to the symphysis. 5 mm coronal and sagittal reformats were acquired. For radiation dose reduction, the following was used: automated exposure control, adjustment of mA and/or kV according to patient nalini garcia COMPARISON: [facility], CT, CT ABD PELVIS W CON, 05/02/2017, 19:01. FINDINGS: Image quality: Good ABDOMEN: Lung bases: Lung bases are clear. Heart size is normal. Solid organs: Liver and spleen are normal in size and enhancement. Gallbladder is within normal casey its. Biliary system is non dilated. Pancreas enhances normally. No adrenal nodules. Kidneys demon strate normal size and enhancement, without hydronephrosis. Peritoneum and bowel: Bowel loops demonstrate normal wall thickness and caliber. No free fluid or a ir. Nodes and vessels: No retroperitoneal or mesenteric adenopathy by size criteria. Aorta and inferior vena cava are normal in size. Miscellaneous: The left rectus sheath hematoma is considered unchanged. The superior epigastric arter y extends to the lower aspect of the area but no acute bleeding is identified on this study. No perit louie blood is seen. No peritoneal fluid is seen. Hematoma measures 10.5 cm transverse dimension 6.3 cm AP dimension and 15.2 cm in length. PELVIS: Genitourinary: Bladder wall thickness is normal. Miscellaneous: No inguinal hernias or adenopathy. Bones: No suspicious bony lesions. No vertebral body compression fractures. IMPRESSION: No change or active bleeding is seen in the rectus sheath hematoma on the left. No other areas of bl eeding are seen. No other abnormalities seen. Case was discussed with Dr. Riley. Dictated by: Ananth Molina M.D. on 05/05/2017 at 7:58 Approved by: Ananth Molina M.D. on 05/05/2017 at 8:30
[2017-05-05] MEDS ORDERED: [UNRECOGNIZED DRUG - MIXTURE] IV ONE (12:50)
[2017-05-05 13:16] VITALS: PULSE 97; RESP 16; O2SAT 96
--- NOTE | 2017-05-05 13:24 | NUR ---
Social Work- Readiness for Discharge/ Multidisciplinary Rounds Data: EMR reviewed. Pt is on day 2 of hospitalization for abdominal hematoma, hemophilia per H&P. Pt discussed in multidisciplinary rounds. Pt is followed by MD Riley. informed DRYWALL METAL STUD WORKER that pt will discharge today and then follow up with two infusions tomorrow as an outpt. Hospitalist states that Oncology will be ordering this. SW met with pt at bedside regarding discharge plan, pt was updated and aware of infusion tomorrow. Pt confirms that he will be able to transport himself to and from the appointment. T/C to [facility] regarding orders, [facility] has not received any orders for this pt at this time. T/C to pt's RN regarding ordering infusion and contacting [facility] regarding outpt infusion, either at [facility] or the [facility]. RN is checking into this and will update DRYWALL METAL STUD WORKER. Pt to discharge home with his spouse to transport via POV. SW will continue to follow. Assessment: Pt who requires two more infusion as an outpt. Plan: RN is checking with [facility] regarding outpt infusion orders, either at [facility] or [facility]. Pt to discharge home with his spouse to transport via POV. Pt is agreeable to outpt infusion plan, SW will continue to follow. PHILLY Graves
--- NOTE | 2017-05-05 14:23 | PCM.DIMED ---
Discharge Instructions Date of Service May 05, 2017 Dates of Hospitalization May 03, 2017 at 19:56 Discharge Diagnosis Discharge Diagnosis # Acute and recurrent rectus sheath hematoma in hemophilia B; present on admission; ongoing # HTN; present on admission; ongoing # Hyperlipidemia # COPD with possible exacerbation. Stable. # Anxiety. Stable. # Hypothyroid, Diet Discharge Diet: Low fat, Low Sodium Activity Discharge Activity: Limited until seen by PCP Call your provider Call your provider for: Fever or Chills, Shortness of breath, Bleeding, Chest pain, Vomitting, Excessive diarrhea, Weakness (unilateral) Patient Instructions Patient Instructions You were hospitalized due to rectal sheath hematoma secondary to hemophilia B. Received factor IX concentrate. Please continue factor IX concentrate for 2 more doses at [facility] tomorrow morning and evening as recommended by your log preparer. Please continue azithromycin for 3 more days for suspected COPD exacerbation which probably has contributed to coughing and subsequent bleeding inn to abdominal wall . Follow-up Provider: Lance Sr DO Follow-up with PCP in: 1 week Provider: Tong Riley MD Follow-up in: 4 weeks Santana Watts MD May 05, 2017 14:23
[2017-05-05] MEDS ORDERED: [UNRECOGNIZED DRUG - CODE] IV (14:24)
[2017-05-05 14:31] VITALS: BP 154/118; PULSE 114; RESP 20; O2SAT 99
--- NOTE | 2017-05-05 15:10 | NUR ---
Social Work- Discharge Data: EMR reviewed. Pt to discharge today, discharge orders are active. Pt is scheduled for infusions at [facility] and [employer] confirmed with [facility] that orders have been received. Pt is agreeable to discharge today and infusion at [facility]. Pt will discharge home with his to transport via POV. No additional discharge needs identified. Assessment: Pt who requires 2 additional infusions tomorrow at [facility]. Plan: Pt will discharge home with his to transport via POV. Pt will return to [facility] for infusion tomorrow. No additional discharge needs identified. Renae Fairbanks, MOTION PICTURE OPERATOR
[2017-05-05] MEDS ORDERED: FACTOR IX IV ONE (17:00)
--- NOTE | 2017-05-05 18:21 | NUR ---
Discharge Orders for discharge were received. The patient was made aware of the plan to discharge and was agreeable to go. The patient was given information regarding his diagnosis and treatment, signs and symptoms to be aware of, follow up instructions and directions for continuing treatment at the [facility] outpatient unit. The patient signified understanding of this information, verified using the teach back method. The patient's asymptomatic IV was then removed intact and the patient was dressed in his own clothing and gathered his belongings. The patient then ambulated to the main entrance where he entered a private vehicle. At the time of discharge the patient was alert and oriented, with no complaint of chest pain, shortness of breath, nausea or other difficulty. Bruising on lower anterior abdomen stable.
--- NOTE | 2017-05-05 19:46 | PCM.DC.MED ---
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 Stable. # Anxiety. Stable. # Hypothyroid, Consultations hematology Dr Riley and hematoly team in [place] over the phone Procedures XRay, CTs & MRIs CT abdomen 05/02/17 Large left rectus abdominis intramuscular hematoma. Recommend clinical correlation and followup to document resolution and exclude underlying soft tissue mass Dictated by: Keyon Strong M.D. on 05/02/2017 at 19:20 Brief History per HPI 41-year-old male with a history of hemophilia, COPD and recurrent rectal sheath hematomas presents to emergency department due to new onset abdominal bruising and swelling that started 2 days ago. The patient presented yesterday to the ED and was found to be in stable condition and scheduled to return today for factor IX replacement. Patient states that his bruising continued to increase and he presented again to see department. He states that this occurs every 6 months around the same location in the lower abdomen. He believes it started this time due to coughing fit which he had. He contact his grant manager in [place] (whose name he does not know) and the nurse practitioner told him that he should come to the hospital and be admitted for 2 days for replacement of factor IX. He denies any associated symptoms of blood loss including dizziness , lightheadedness, chest pain, shortness of breath, weakness, or fatigue. Emergency department the patient has received 11,000 international units of factor IX. Yesterday he had a CT abdomen which showed a hematoma, and the study was not repeated today. Hospital Course 41-year-old male with a history of hemophilia B, COPD and recurrent rectal sheath hematomas presents to emergency department due to new onset abdominal bruising and swelling that started 2 days prior to admission. The patient presented to the ED a day earlier and was found to be in stable condition and scheduled to return for factor IX replacement. He contact his grant manager in [place] (whose name he does not know) and the nurse practitioner told him that he should come to the hospital and be admitted for 2 days for replacement of factor IX. 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 discharged for patient to get at [facility] Riley ordered med -continue Azithro and pred for 3 days as COPD exacerbation and cough may have contributed to bleed # Acute Hypokalemia; present on admission -Replaced in ED and resolved # HTN; present on admission; ongoing -Blood pressure elevated to the 160s likely due to pain with this hematoma -Continue amlodipine and HCTZ # Hyperlipidemia -Continue atorvastatin # COPD with possible exacerbation. Stable. -Continue Advair and Spiriva; azithromycin -continue Azithro and pred for 3 days as COPD exacerbation and cough may have contributed to bleed # Anxiety. Stable. -Continue Bupropion # Hypothyroid -Continue home levothyroxine -high TSH ,normal FT4 -advised to get repeat TFT in 2-3 weeks and ask PCP if he needs to increase synthroid to 37mcg daily Dispo: discharge home condition stable Exam Vital Signs (Last) Date Time Temp Pulse Resp B/P Pulse Ox O2 Delivery O2 Flow Rate FiO2 05/05/17 14:31 36.7 114 20 154/118 99 Room Air Exam General: Alert, Cooperative, No Acute Distress Head: Normal Eyes: Scleral Anicteric Nose: Mucous Membr Moist/[place] Mouth: Mucous Membr Moist/[place] Neck: Supple Chest & Lungs: Chest Wall Normal, Clear to auscultation & percussion Cardiovascular: Regular Rate/Rhythm Abdomen: Tender, Non-distended, Normoactive bowel tones, Soft, Other ( noticeable bruising and hematoma the lower abdomen) Extremities: No cyanosis/clubbing/edma bilat Neurological: Grossly Neurologically Intact, Normal Speech Additional Information: Psych: Calm, appropriate Test 05/03/17 18:40 05/04/17 05:25 05/05/17 05:45 Thyroid Stimulating Hormone (TSH) 7.680uIU/mL (0.450-4.500) Sodium Level 141mEq/L (134-144) Potassium Level 3.9mEq/L (3.5-5.2) Chloride Level 101mEq/L (97-108) Carbon Dioxide Level 22mmol/L (18-29) Blood Urea Nitrogen 10mg/dL (6-24) Creatinine 0.77mg/dL (0.76-1.27) Estimat Glomerular Filtration Rate 118mL/min (>59) Glucose Level 136mg/dL (60-99) Calcium Level 8.2mg/dL (8.5-10.1) Total Bilirubin 0.5mg/dL (0.0-1.2) Aspartate Amino Transf (AST/SGOT) 11U/L (0-50) Alanine Aminotransferase (ALT/SGPT) 10U/L (0-44) Alkaline Phosphatase 85U/L (25-150) Total Protein 6.9g/dL (6.4-8.4) Albumin 4.1g/dL (3.4-5.0) White Blood Count 10.5th/mm3 (3.8-10.1) Red Blood Count 4.08mil/mm3 (4.40-5.80) Hemoglobin 13.4g/dL (13.8-17.2) Hematocrit 37.9% (41.0-50.0) Mean Corpuscular Volume 92.9fL (81-100) Mean Corpuscular Hemoglobin 32.8pg (27.0-35.0) Mean Corpuscular Hemoglobin Concent 35.4% (32.0-37.0) Red Cell Distribution Width 12.3% (12.3-15.4) Platelet Count 263bil/L (150-400) Neutrophils (%) (Auto) 74.7% (40-74) Lymphocytes (%) (Auto) 16.6% (14-46) Monocytes (%) (Auto) 7.8% (4-12) Eosinophils (%) (Auto) 0.3% (0-5) Basophils (%) (Auto) 0.2% (0-3) Prothrombin Time 9.6sec (8.1-12.5) Prothromb Time International Ratio 0.90ratio Activated Partial Thromboplast Time 31.8sec (22.8-33.0) Free Thyroxine 1.28ng/dL (0.82-1.77) Discharge Medications Discharge Medications Amlodipine (Amlodipine) 10 Mg Tablet 10 MG PO DAILY (Reported) Atorvastatin Calcium (Atorvastatin Calcium) 20 Mg Tablet 20 MG PO DAILY ( Reported) Azithromycin (Zithromax) 250 Mg Tablet 250 MG PO DAILY Prescribed by: MELVIN CORRAL DO Bupropion ER (Bupropion ER) 150 Mg Tablet.er 150 MG PO BID (Reported) Factor IX Human Recombinant (Benefix) 3,000 Unit Kit 5,600 UNIT IV BID Prescribed by: SANTANA ROSS MD Fluticasone/Salmeterol (Advair 250-50 Diskus) 60 Puff/Inh Disk 1 PUFF IH BID ( Reported) Hydrochlorothiazide (Hydrochlorothiazide) 25 Mg Tablet 25 MG PO DAILY (Reported ) Levothyroxine (Levothyroxine) 25 Mcg Tablet 25 MCG PO DAILY (Reported) Pantoprazole DR (Pantoprazole DR) 40 Mg Tablet.dr 40 MG PO DAILY (Reported) Prednisone (PredniSONE) 20 Mg Tablet 40 MG PO DAILY Prescribed by: MELVIN CORRAL DO Tiotropium [place] (Spiriva) 18 Mcg Cap.w.dev 18 MCG IH DAILY (Reported) As needed ([vicodan]) unknown PO q4 to 6hrs PRN PRN For Pain (Reported) Albuterol HFA (Proair HFA) 8.5 Gm Hfa.aer.ad 2 PUFFS IH Q4 PRN PRN For Shortness of Breath (Reported) Followup Plan Disposition: home Discharge Diet: Low fat, Low Sodium Discharge Activity: Limited until seen by PCP Patient Instructions You were hospitalized due to rectal sheath hematoma secondary to hemophilia B. Received factor IX concentrate. Please continue factor IX concentrate for 2 more doses at [facility] tomorrow morning and evening as recommended by your grant manager. Please continue azithromycin for 3 more days for suspected COPD exacerbation which probably has contributed to coughing and subsequent bleeding inn to abdominal wall . Follow-up Provider: Lance Sr DO Follow-up with PCP in: 1 week Provider: Tong Riley MD Follow-up in: 4 weeks Time spent 35 minutes coordinating discharge copies to: Lance Sr DO; Tong Riley MD, Melaku MD May 05, 2017 19:46
[2017-05-06] MEDS ORDERED: VARE1TAB22 PO (09:17)
== END 2017-05-05 17:44 | disposition home or self-care (01) | DRG 661 ==
LOC: SED 17:16 → OSC 19:56
PROVIDERS: ADMIT Hospitalist; ATTEND Hospitalist
PROC: 30233W1 Transfusion of Nonautologous Factor IX into Peripheral Vein, Percutaneous Approach (ICD-10-PCS; principal; 2017-05-03)
DX: D67 Hereditary factor IX deficiency (principal); J44.1 Chronic obstructive pulmonary disease with (acute) exacerbation; I10 Essential (primary) hypertension; M79.81 Nontraumatic hematoma of soft tissue; E78.5 Hyperlipidemia, unspecified; E87.6 Hypokalemia; Z87.891 Personal history of nicotine dependence; E03.9 Hypothyroidism, unspecified; F41.9 Anxiety disorder, unspecified

== ENCOUNTER 2017-05-06 14:11 | Day surgery (SDC) | payer OTHER ==
[~2017-05-06] VITALS: Ht 200.7 cm; Wt 116.0 kg
[2017-05-06 08:00] VITALS: BP 117/83; PULSE 101; RESP 20; O2SAT 96
[2017-05-06] MEDS: FACTOR IX IV SCH ×2 (08:54→16:00)
[~2017-05-06 14:11] MED LIST changes: +VARE1TAB22 PO; +VICODAN PO
[2017-05-06 16:00] VITALS: BP 129/82; PULSE 96; RESP 16; O2SAT 98
--- NOTE | 2017-05-06 16:54 | NUR ---
Factor IX Patient arrived to unit at 0800 and 1600. Cough present. IV initiated. Tolerated infusion each time without adverse reaction. SL removed. No further appointments. Left unit with his belongings.
== END 2017-05-06 23:59 | disposition home or self-care (01) ==
LOC: MOCO 14:11
PROVIDERS: ATTEND Internal Medicine Hematology & Oncology
DX: D67 Hereditary factor IX deficiency (principal)
CPT/HCPCS: 96374; 96376; J7194